=== PATIENT | male | born 1960 ===

== ENCOUNTER 2023-04-30 20:00 | Outpatient (CLI) | payer OTHER, SELFPAY | END 2023-04-30 20:01 | disposition home or self-care (01) | LOC: SLEEP 05-01 05:10 | PROVIDERS: Family Provider Family Medicine; PCP Family Medicine; Visit Provider Family Medicine | DX: G47.33 Obstructive sleep apnea (adult) (pediatric) (principal) | CPT/HCPCS: 95810 ==